=== PATIENT | male | born 2000 | race African-American/Black ===

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

== ENCOUNTER 2022-01-27 15:58 | Emergency (ER) | payer OTHER, SELFPAY ==
[2022-01-27 16:37] VITALS: BP 121/70; PULSE 75; RESP 16; TEMP 36.1; O2SAT 100; BMI 30.7
== END 2022-01-27 22:54 | disposition left against medical advice (07) ==
LOC: HO.ED 22:52
PROVIDERS: Emergency Provider Emergency Medicine
DX: R10.32 Left lower quadrant pain (principal)
CPT/HCPCS: 99281

== ENCOUNTER 2022-01-28 16:56 | Emergency (ER) | payer OTHER, SELFPAY ==
[2022-01-28 17:33] VITALS: BP 135/82; PULSE 72; RESP 18; TEMP 37.6; O2SAT 99; BMI 30.1
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
== END 2022-01-28 19:47 | disposition home or self-care (01) ==
LOC: HO.ED 19:44
PROVIDERS: Emergency Provider Internal Medicine
DX: Z48.00 Encounter for change or removal of nonsurgical wound dressing (principal); Z79.899 Other long term (current) drug therapy
CPT/HCPCS: 99283

== ENCOUNTER 2023-03-12 08:59 | Emergency (ER) | payer OTHER, SELFPAY ==
--- NOTE | ~2023-03-12 | XR_ITS ---
EXAMINATION: XR CHEST CLINICAL INFORMATION: Left-sided pain COMPARISON: 10/13/2021 TECHNIQUE: 2 views of the chest were obtained. FINDINGS: The lungs are well expanded. There is no focal consolidation, edema, or effusion. No pneumothorax. The cardiomediastinal silhouette is within normal limits. No acute osseous abnormality. XR/XR chest 2V IMPRESSION: Clear lungs.
[2023-03-12 09:24] VITALS: BP 115/69; PULSE 91; RESP 18; TEMP 39; O2SAT 98; BMI 28.7
[2023-03-12] MEDS: Ondansetron ODT 4 MG TAB.RAPDIS TRANSLINGU (09:33)
[2023-03-12] MEDS: Acetaminophen 325 MG TABLET 650 MG PO (09:33)
[2023-03-12 09:47] LABS: Basophils Absolute Auto 0.1 X10*3/uL (0.0-0.2); Basophils Percent Auto 0.4 % (0-2); Eosinophils Absolute Auto 0.1 X10*3/uL (0.0-0.4); Eosinophils Percent Auto 0.8 % (0-4); Hematocrit 39.3 % (42.0-52.0); Hemoglobin 13.6 g/dl (14.0-18.0); Imm Gran Abs Auto 0.08 X10*3/uL (0.00-0.03); Imm Gran Pct Auto 0.5 % (0.0-0.4); Lymphocytes Absolute Auto 1.6 X10*3/uL (1.2-4.9); Lymphocytes Percent Auto 10.3 % (20-40); MANUAL DIFF FLAG SCAN; Mean Corpuscular HGB Conc 34.6 g/dl (31.0-36.0); Mean Corpuscular Hemoglobin 28.3 pg (27.0-33.0); Mean Corpuscular Volume 81.7 fL (80.0-98.0); Mean Platelet Volume 9.2 fL (9.4-12.4); Monocytes Absolute Auto 1.7 X10*3/uL (0.1-1.2); Monocytes Percent Auto 10.6 % (2-11); Neutrophils Absolute Auto 12.2 x10*3/uL (2.0-8.3); Neutrophils Percent Auto 77.4 % (45-73); Platelet Count 249 X10*3/uL (160-400); Red Blood Count 4.81 X10*6/uL (4.60-5.80); Red Cell Distribution Width 13.1 % (11.0-16.0); SCAN SMEAR FLAG 1; White Blood Count 15.8 X10*3/uL (4.8-10.8)
[2023-03-12 10:00] LABS: Anion Gap 15 (12-20); Blood Urea Nitrogen 9 mg/dL (9-16); Calcium 9.3 mg/dL (8.4-10.2); Carbon Dioxide 25 mmol/L (22-29); Chloride 102 mmol/L (96-108); Creatinine Clr Calc Pharmacy 122.4; Estimated Glomerular Filt Rate > 60; Glucose Random 93 mg/dL (60-115); Potassium 3.5 mmol/L (3.3-5.1); Sodium 138 mmol/L (135-145)
[2023-03-12 10:14] LABS: SLIDE REVIEW VERIFIED
[2023-03-12 10:19] LABS: COVID-19 Test Negative (Negative); IDNOW Serial# 08D9AD1C
--- NOTE | 2023-03-12 10:24 | ECG_ITS ---
Test Reason : CHEST PAIN Blood Pressure : / mmHG Vent. Rate : 073 BPM Atrial Rate : 073 BPM P-R Int : 178 ms QRS Dur : 090 ms QT Int : 368 ms P-R-T Axes : 011 015 -08 degrees QTc Int : 405 ms Normal sinus rhythm Normal ECG No previous ECGs available Referred By: Mary Ramirez Electronically Signed By:WILBERT KWON MD
[2023-03-12 10:53] LABS: Alanine Aminotransferase 20 U/L (0-40); Albumin Level 4.1 g/dL (3.5-5.0); Alkaline Phosphatase 67 U/L (39-117); Aspartate Amino Transferase 12 U/L (5-37); Bilirubin Direct 0.8 mg/dL (0.0-0.5); Bilirubin Total 3.2 mg/dL (0.0-1.0); Lipase 6 U/L (8-78); Total Protein 8.7 g/dL (6.5-8.0)
--- NOTE | 2023-03-12 11:22 | ED_ITS ---
HPI - Nausea/Vomiting/Diarrhea General Chief complaint: Nausea/Vomiting/Diarrhea Stated complaint: vomiting blood l arm pain coughing Time Seen by Provider: 03/12/23 10:00 Source: patient Mode of arrival: ambulatory Limitations: no limitations History of Present Illness HPI Narrative: Patient is a 22 year old male with no known significant past medical history presenting today for nausea, vomiting and diarrhea. Patient tells me he has been sick with flu-like symptoms for a week and had an episode of blood-tinged emesis 2 days ago. However, he woke up this morning with another episode of blood- tinged emesis and nosebleed that lasted for about 2 minutes. He also reports sharp, pleuritic and non-radiating chest pain that worsens with laying on his back and on his right side. He states that pain improves with sitting. He endorses constant chest pain and rates it 7/10. He admits to productive cough though denies congestion, rhinorrhea or dyspnea. He reports no other concerns at this time. He denies abdominal pain, fevers at home, chills, urinary symptoms. No known sick contacts. MD elicited complaint: nausea and vomiting Onset (ago): week(s) Description of vomiting: blood-streaked Description of diarrhea: loose Associated nausea: Yes Associated abdominal pain: No Location of pain: chest Radiation: does not radiate Pain consistency: constant Severity: moderate Pain scale (0-10): 7 Quality: sharp Exacerbating factors: other (laying on his back or right side ) Relieving factors: other (sitting) Context: other (has had ongoing flu-like symptoms for a week) Associated symptoms: fever/chills and nausea/vomiting Related Data Previous Rx's Medication Instructions Recorded cephalexin 500 mg capsule 500 mg PO TID 3 days #9 caps 01/28/22 ondansetron 4 mg disintegrating 4 mg PO Q8H PRN nausea and 03/12/23 tablet vomiting 3 days #7 tabs Allergies Allergy/AdvReac Type Severity Reaction Status Date / Time Seasonal Allergies Allergy Mild Nasal Verified 01/28/22 17:33 congestion Review of Systems Review of Systems: Yes all other systems are reviewed and are negative Gastrointestinal: Gastrointestinal: Reports nausea PMFSH Past Medical History Surgical History (Updated 10/13/21 @ 20:04 by Shahrzad Alford) Hx of appendectomy Social History Social History Advance Directives: No Physical Exam Vital Signs: Vital Signs: Last Vital Signs Temp 99.3 F 03/12/23 11:43 Pulse 82 03/12/23 11:43 Resp 16 03/12/23 11:43 BP 116/57 L 03/12/23 11:43 Pulse Ox 96 03/12/23 11:43 O2 Del Method Room Air 03/12/23 11:43 BMI result Body Mass Index 28.7 Appearance: Alert. Oriented X3. No acute distress. HEENT: normal inspection, No exudate noted, Neck supple, no LAD CVS: Normal heart rate and rhythm. Pulses normal. + pain upon palpation of left chest Respiratory: No respiratory distress. Lungs CTAB, diminished at LLL Abdomen: +BS in all four quadrants, soft and non-tender abdomen Skin: Skin warm and dry. Normal skin color. Normal skin turgor. No rashes. Extremities: normal tone and ROM Neuro: Oriented X 3. No motor deficit. No sensory deficit. Course Reevaluation(s) Reevaluation #1: Patient is most likely suffering from viral gastroenteritis. No abdominal tenderness upon palpation. Patient is not septic from a bacterial cause. He has had no diarrhea or vomiting while he is here. I do not feel patient is septic at this time as his vitals are stable. Leukocytosis likely reactive due to vomiting. Fever likely viral. Time: 12:46 Medications Administered Discontinued Medications Generic Name Dose Route Start Last Admin Trade Name Frantz PRN Reason Stop Dose Admin Acetaminophen 650 mg 03/12/23 09:28 03/12/23 09:33 Acetaminophen 325 Mg Tablet PO 03/12/23 09:29 650 mg ONCE ONE Administration Sodium Chloride 1,000 mls @ 999 mls/hr 03/12/23 10:15 03/12/23 10:19 Ns IVCONT 03/12/23 11:15 Not Given .Q1H1M JESSICA Ketorolac Tromethamine 30 mg 03/12/23 12:13 03/12/23 12:50 Ketorolac Tromethamine 30 Mg/Ml Vial IVPUSH 03/12/23 12:14 30 mg ONCE ONE Administration Ondansetron HCl 4 mg 03/12/23 09:27 03/12/23 09:33 Ondansetron Odt 4 Mg Tab.Rapdis TRANSLINGU 03/12/23 09:28 4 mg ONCE ONE Administration Ondansetron HCl 4 mg 03/12/23 10:01 03/12/23 10:19 Ondansetron Hcl 4 Mg/2 Ml Vial IVPUSH 03/12/23 10:02 Not Given ONCE ONE Medical Decision Making Medical Decision Making [facility] Narrative: Patient is a 22 year old male with no known significant past medical history who presents today for nausea, vomiting and diarrhea. On arrival to the ER he is febrile but not tachycardic. Fever resolved w/ tylenol. Based on the history and physical assessment, I believe he has costochondritis, which could have been brought on by the vomiting. CXR and EKG ordered to rule out pneumonia and pericarditis; both were unremarkable. Patient was given fluids and zofran for the nausea but refused both. PO Tylenol given for pain, which resolved his fever but did not alleviate pleuritic chest pain. IV Toradol ordered. His abd exam was benign with no diarrhea while in the ER. Doubt bacterial cause of his symptoms. No need for CT scan today given no abdominal pain and nontender abdomen. His symptoms are most likely due to a viral gastroenteritis. He is tolerating PO with improvement in his chest discomfort. he is stable for d/c home with supportive care, return precautions discussed Differential Diagnosis Differential Diagnoses: The differential diagnosis associated with the prese ntation includes 1. Pericarditis 2. Pneumonia 3. Costochondritis 4. Strep Pharyngitis- Bacterial 5. Gatroenteritis Admission/Observation Consideration of admission/observation: Escalation of care including admission/observation considered Lab Data [facility] Lab Attestation statement: I reviewed the patient's lab results. Labs were unremarkable. EKG and chest X-ray were normal. 03/12/23 09:40 03/12/23 09:40 Labs: Lab Results 03/12/23 03/12/23 03/12/23 Range/Units 09:40 09:40 09:40 WBC 15.8 H (4.8-10.8) X10*3/uL RBC 4.81 (4.60-5.80) X10*6/uL Hgb 13.6 L (14.0-18.0) g/dl Hct 39.3 L (42.0-52.0) % MCV 81.7 (80.0-98.0) fL MCH 28.3 (27.0-33.0) pg MCHC 34.6 (31.0-36.0) g/dl RDW 13.1 (11.0-16.0) % Plt Count 249 D (160-400) X10*3/uL MPV 9.2 L (9.4-12.4) fL Immature Gran % (Auto) 0.5 H (0.0-0.4) % Neut % (Auto) 77.4 H (45-73) % Lymph % (Auto) 10.3 L (20-40) % [place] % (Auto) 10.6 (2-11) % Eos % (Auto) 0.8 (0-4) % Baso % (Auto) 0.4 (0-2) % Lymph # (Auto) 1.6 (1.2-4.9) X10*3/uL [place] # (Auto) 1.7 H (0.1-1.2) X10*3/uL Eos # (Auto) 0.1 (0.0-0.4) X10*3/uL Baso # (Auto) 0.1 (0.0-0.2) X10*3/uL Abs Immat Gran (auto) 0.08 H (0.00-0.03) X10*3/uL Absolute Neuts (auto) 12.2 H (2.0-8.3) x10*3/uL Absolute Nucleated RBC 0.000 (0.0-0.012) X10*3/uL Nucleated RBC % (auto) 0.0 (0.0-0.2) /100WBC Smear Tech's Comments VERIFIED Sodium 138 (135-145) mmol/L Potassium 3.5 (3.3-5.1) mmol/L Chloride 102 (96-108) mmol/L Carbon Dioxide 25 (22-29) mmol/L Anion Gap 15 (12-20) BUN 9 (9-16) mg/dL Creatinine 1.09 (0.5-1.4) mg/dL Estim Creat Clear Calc 122.4 Estimated GFR > 60 Random Glucose 93 (60-115) mg/dL Calcium 9.3 (8.4-10.2) mg/dL Total Bilirubin 3.2 H (0.0-1.0) mg/dL Direct Bilirubin 0.8 H (0.0-0.5) mg/dL AST 12 (5-37) U/L ALT 20 (0-40) U/L Alkaline Phosphatase 67 (39-117) U/L Total Protein 8.7 H (6.5-8.0) g/dL Albumin 4.1 (3.5-5.0) g/dL Lipase 6 L (8-78) U/L COVID-19 ([facility]RAN) Negative (Negative) COVID-19 Clin Com See Note S. pyogenes GrpA KVNG (Negative) 03/12/23 Range/Units 11:41 WBC (4.8-10.8) X10*3/uL RBC (4.60-5.80) X10*6/uL Hgb (14.0-18.0) g/dl Hct (42.0-52.0) % MCV (80.0-98.0) fL MCH (27.0-33.0) pg MCHC (31.0-36.0) g/dl RDW (11.0-16.0) % Plt Count (160-400) X10*3/uL MPV (9.4-12.4) fL Immature Gran % (Auto) (0.0-0.4) % Neut % (Auto) (45-73) % Lymph % (Auto) (20-40) % [place] % (Auto) (2-11) % Eos % (Auto) (0-4) % Baso % (Auto) (0-2) % Lymph # (Auto) (1.2-4.9) X10*3/uL [place] # (Auto) (0.1-1.2) X10*3/uL Eos # (Auto) (0.0-0.4) X10*3/uL Baso # (Auto) (0.0-0.2) X10*3/uL Abs Immat Gran (auto) (0.00-0.03) X10*3/uL Absolute Neuts (auto) (2.0-8.3) x10*3/uL Absolute Nucleated RBC (0.0-0.012) X10*3/uL Nucleated RBC % (auto) (0.0-0.2) /100WBC Smear Tech's Comments Sodium (135-145) mmol/L Potassium (3.3-5.1) mmol/L Chloride (96-108) mmol/L Carbon Dioxide (22-29) mmol/L Anion Gap (12-20) BUN (9-16) mg/dL Creatinine (0.5-1.4) mg/dL Estim Creat Clear Calc Estimated GFR Random Glucose (60-115) mg/dL Calcium (8.4-10.2) mg/dL Total Bilirubin (0.0-1.0) mg/dL Direct Bilirubin (0.0-0.5) mg/dL AST (5-37) U/L ALT (0-40) U/L Alkaline Phosphatase (39-117) U/L Total Protein (6.5-8.0) g/dL Albumin (3.5-5.0) g/dL Lipase (8-78) U/L COVID-19 ([facility]RAN) (Negative) COVID-19 Clin Com S. pyogenes GrpA KVNG Negative (Negative) Independent Interpretation I performed an independent interpretation of an: EKG and Plain X-Ray Interpretation: EKG: Normal sinus rhythm, Ventricular Rate of 73 and QTc of 405ms. Chest X-ray: clear lungs Radiology Impression Discussion of test interpretation with radiology: I discussed test int erpretation with the radiologist Radiologist Impression: Findings per radiologist: The lungs are well expanded. There is no focal consolidation, edema or effusion. No pneumothorax. The cardiomediastinal silhouette is within normal limits. No acute osseous abnormality. I agree with radiologist impression as CXR showed clear lungs Prescription Management I considered prescription management with: Pain Medication Patient was first given PO Tylenol but with no effect. IV Toradol ordered and given with good effect. Discharge Plan Discharge Clinical Impression: Gastroenteritis Patient Disposition: Home, Self-Care Instructions: Gastroenteritis (DC) Additional Instructions: You lab workup today was unremarkable. Your urine test was negative for infection and . You most likely have a viral GI bug also known as gastroenteritis. Treatment is supportive care, symptoms usually resolve on their own in 48-72 hours. Recommend rest and plenty of oral hydration. Stick to a bland diet like soup and toast while you are not feeling well. Take the prescribed medication as needed for nausea. Recommend over the counter Pepto Bismol or Imodium for upset stomach and diarrhe a. Follow up with your doctor as needed. If you develop new or worsening symptoms call 911 or come back to the ER for further evaluation. Prescriptions: New ondansetron 4 mg tablet,disintegrating 4 mg PO Q8H PRN (Reason: nausea and vomiting) 3 Days Qty: 7 0RF No Action cephalexin 500 mg capsule 500 mg PO TID 3 Days Qty: 9 0RF Stand Alone Forms: Work/School Release Interventions: ED Discharge Assessment Last Done: 03/12/23 13:18 Discharge Date/Time: 03/12/23 13:19
[2023-03-12 11:43] VITALS: BP 116/57; PULSE 82; RESP 16; TEMP 37.4; O2SAT 96
[2023-03-12 11:57] LABS: IDNOW Serial# 08D9AD1C; Strep A Nucleic Acid Negative (Negative)
[2023-03-12] MEDS: Ketorolac Tromethamine 30 MG/ML VIAL IVPUSH (12:50)
== END 2023-03-12 13:19 | disposition home or self-care (01) ==
PROVIDERS: Physician Assistant; Emergency Provider Emergency Medicine
DX: K52.9 Noninfective gastroenteritis and colitis, unspecified (principal); R07.89 Other chest pain; R11.2 Nausea with vomiting, unspecified; Z20.822 Contact with and (suspected) exposure to COVID-19; Z20.828 Contact with and (suspected) exposure to other viral communicable diseases; Z79.899 Other long term (current) drug therapy
CPT/HCPCS: 36415; 71046; 80048; 80076; 83690; 85025; 87635; 87651; 93005; 96374; 99284; J1885